=== PATIENT | male | born 1990 | race Caucasian/White ===

== ENCOUNTER 2018-04-17 20:46 | Emergency (ER) | payer OTHER ==
--- NOTE | 2018-04-17 21:31 | RAD ---
RADIOGRAPH CHEST 2 VIEWS: 02/05/19 HISTORY: 27-year-old male with cough. FINDINGS: The lungs are clear. The cardiomediastinal silhouette and hilar shadows are normal. There is no ple ural effusion. The osseous structures appear normal. There is no pneumothorax. IMPRESSION: Normal. lisa [] POS: HIRO
[2018-04-17] MEDS ORDERED: Dexamethasone 4 mg/ml Vial ONE (22:07)
== END 2018-04-17 22:10 | disposition home or self-care (01) ==
LOC: ERS 20:46
DX: J02.9 Acute pharyngitis, unspecified (principal); F17.210 Nicotine dependence, cigarettes, uncomplicated; J45.909 Unspecified asthma, uncomplicated; Z71.6 Tobacco abuse counseling
CPT/HCPCS: 71046; 87081; 87430; 99406; J1100